=== PATIENT | female | born 1985 | race Caucasian/White ===

== ENCOUNTER → 2016-07-08 | Outpatient (CLI) | payer BC, OTHER ==
[~2016-07-08] MED LIST: ACET-1256 PO; BCPILLS PO; CETI10TA84 PO; IBUP-103 PO; METH0.2T39 PO; METR500T PO; MULT-506 PO; PRENTAB26 PO; VITAMIN D PO
[2016-07-08 13:01] LABS: URINE APPEARANCE CLEAR (CLEAR); URINE BILIRUBIN NEG (NEG); URINE COLOR YELLOW; URINE NITRITE NEG (NEG); URINE PH 7.5 (4.5-7.5); URINE SPECIFIC GRAVITY 1.013 (1.000-1.030); UROBILINOGEN NEG (NEG)
[2016-07-08 13:18] LABS: MANUAL MICROSCOPIC REQUIRED? NO; REVIEW REQ? NO
== END | disposition home or self-care (01) ==
LOC: C.LABSPEC 12:34
PROVIDERS: ATTEND Obstetrics & Gynecology
DX: O34.219 Maternal care for unspecified type scar from previous cesarean delivery (principal); Z3A.00 Weeks of gestation of pregnancy not specified

== ENCOUNTER 2016-07-15 08:38 | Day surgery (SDC) | payer BC, OTHER ==
[~2016-07-15] VITALS: Ht 157.5 cm; Wt 53.0 kg
[~2016-07-15 08:38] MED LIST changes: -ACET-1256 PO; -CETI10TA84 PO; +DOXYCYCLINE HYCLATE 100 MG CAP PO SCH; -IBUP-103 PO; +LACTATED RINGER'S 1000ML 1,000 ML IV SCH; -METH0.2T39 PO; -METR500T PO; -MULT-506 PO; -VITAMIN D PO
[2016-07-15] MEDS ORDERED: ACET-1256 PO (09:03)
[2016-07-15] MEDS ORDERED: CETI10TA84 PO (09:03)
[2016-07-15 09:06] VITALS: BP 105/49; PULSE 77; TEMP 36.6; O2SAT 100; Ht 157.5 cm; Wt 53.0 kg
[2016-07-15 09:28] LABS: BASO % 0.1 %; BASO ABS # 0.01 K/uL (0-0.2); EOS % 1.5 %; HEMATOCRIT 38.3 % (37-47); IG% 0.1 %; LYMPH % 36.9 %; LYMPH ABS # 2.54 K/uL (1.2-3.4); MEAN CELL VOLUME 90.1 fL (80-100); MEAN CORPUSCULAR HEMOGLOBIN 30.6 pg (25-34); MEAN PLATELET VOLUME 9.8 fL (7.4-10.4); MONO % 6.5 %; NEUT % 54.9 %; PLATELET COUNT 225 K/uL (130-400); RED BLOOD COUNT 4.25 M/uL (4.2-5.4); WHITE BLOOD COUNT 6.89 K/uL (4.8-10.8)
[2016-07-15 09:34] LABS: COMPLETE YES; MEAN CORPUSCULAR HGB CONC 33.9 g/dl (32-36)
[2016-07-15] MEDS ORDERED: SODIUM CHLORIDE 0.9% 1000ML 1,000 ML IV SCH (10:09)
--- NOTE | 2016-07-15 10:09 | History & Physical Bridge Note ---
H&P Re-Evaluation Bridge Note: I have examined the patient, reviewed the History & Physical and in the interval since the performance of the History & Physical I have noted the following changes of clinical significance: No changes noted
--- NOTE | 2016-07-15 10:11 | Discharge Instructions ---
Discharge Instructions Date of Service July 15, 2016. Visit Reason for Visit: Missed Discharge Discharge Diagnosis / Problem: Dilation and Evacuation Discharge Goals Goal(s): Specific goals Activity Recommendations Activity Limitations: per Instructions/Follow-up section Anesthesia . Post Anesthesia Instructions: If you have had General Anesthesia or IV Sedation: * Do not drive today. * Resume driving when surgeon permits. * Do not make important decisions or sign legal documents today. * Call surgeon for: 1. Temperature elevations greater than 101 degrees F. 2. Uncontrollable pain. 3. Excessive bleeding. 4. Persistent nausea and vomiting. 5. Medication intolerance (nausea, vomiting or rash). * For nausea and vomiting use only clear liquids such as: tea, soda, bouillon until nausea subsides, then gradually increase diet as tolerated. * If you have any concerns or questions, call your surgeon's office. If physician is unavailable and it is an emergency, call 911 or go to the nearest emergency room. . Instructions / Follow-Up Instructions / Follow-Up ACTIVITY RECOMMENDATIONS: * Avoid tampons, douching, hot tubs, pools, and intercourse until bleeding has stopped. * May shower as usual. * No strenuous activity for 24-48 hours. After 24-48 hours, you may do anything you feel like doing (driving and sports are okay). SPECIAL CARE INSTRUCTIONS: Special Diet: * Mild nausea may occur in the immediate post-operative period. * Take clear liquids such as tea, cola or bouillon until all nausea has subsided; you may then resume your normal diet. Special Care: * Light bleeding and vaginal spotting can last from a few days to 3-4 weeks. Call your doctor if bleeding becomes heavier than the heaviest part of your period. * Check your temperature twice a day for one week. If it goes above 100.4 degrees Fahrenheit (38.0 Celsius), notify your doctor. * Call your doctor's office for an appointment for 6 weeks after your surgery. FOLLOW-UP VISIT: Call your doctor's office for an appointment for 6 weeks after your surgery. Diet Recommendations Recommended Home Diet: resume previous diet Pending Studies Studies pending at discharge: no Medical Emergencies . Who to Call and When: Medical Emergencies: If at any time you feel your situation is an emergency, please call 911 immediately. . Non-Emergent Contact Non-Emergency issues call your: Primary Care Provider . . "Provider Documentation" section prepared by Malaika Law. .
--- NOTE | 2016-07-15 10:14 | History and Physical ---
History & Physical Date July 15, 2016. Chief Complaint Missed History of Present Illness The patient is a 30 year old female with complaints of 8w3d MAB at what should have been 10w3d yesterday. No cramps/VB. Additional History Hepatic Disease: No Endocrine Disorder: No Kidney Disease: No Hypertension: No Heart Disease: No Bleeding Tendencies: No Infectious Diseases: No Allergies Coded Allergies: Levofloxacin (Verified Allergy, Intermediate, RASH, 07/15/16) Fever, Itching Cephalexin (Unverified Allergy, Unknown, UNKNOWN, 07/15/16) UNKNOWN ALLERGY Shellfish Allergy (Unverified Allergy, Unknown, none stated, 07/15/16) Home Medications Scheduled Acetaminophen (Tylenol), 2 TAB PO Q6 Cetirizine (Zyrtec), 10 MG PO DAILY Multivit/Min/Iron/Fol Ac/Pren ( Vitamin), 1 TAB PO DAILY Physical Examination Skin: warm/dry, no rash Eyes: normal inspection, EOMI, sclerae normal ENT: normal ENT inspection, pharynx normal Head: normocephalic, atraumatic Neck: supple, no adenopathy, trachea midline Respiratory/Chest: lungs clear, normal breath sounds, no respiratory distress Cardiovascular: regular rate, rhythm, no edema, no murmur Abdomen / GI: normal bowel sounds, non tender Neurologic/Psych: no motor/sensory deficits, alert, normal reflexes, oriented x 3 Addiitonal Comments: Appropriately sad Diagnosis Missed , first trimester Plan of Treatment Dialtion and evacuation
[2016-07-15] MEDS ORDERED: IBUPROFEN 600 MG TAB PO PRN (10:15)
[2016-07-15] MEDS ORDERED: OXYCODONE/ACETAMINOPHEN 5-325 TAB PO PRN ×2 (10:15)
[2016-07-15] MEDS ORDERED: PROMETHAZINE HCL INJ 25 MG in SODIUM CHLORIDE 0.9% 50ML 50 ML IV PRN (10:15)
[2016-07-15] MEDS ORDERED: ONDANSETRON INJ 2 MG/ML 2 ML VIAL IV PRN ×2 (10:15→11:00)
[2016-07-15] MEDS ORDERED: KETOROLAC TROMETHAMINE 30 MG/ML VIAL IV. PRN (10:15)
[2016-07-15] MEDS ORDERED: FENTANYL CITRATE INJ 50 MCG/1 ML 2 ML VIAL ONE (10:18)
[2016-07-15] MEDS ORDERED: MIDAZOLAM HCL 1 MG/ML 2ML VIAL ONE (10:18)
[2016-07-15] MEDS ORDERED: DOXYCYCLINE HYCLATE 100 MG CAP PO SCH (10:30)
[2016-07-15] MEDS ORDERED: FENTANYL CITRATE INJ 50 MCG/1 ML 2 ML VIAL IV PRN (11:00)
[2016-07-15] MEDS ORDERED: EpHEDrine SULFATE INJ 50 MG/ML AMP IV PRN (11:00)
[2016-07-15] MEDS ORDERED: ATROPINE SULFATE 0.1 MG/ML 5ML SYR IV PRN (11:00)
[2016-07-15] MEDS ORDERED: HYDROmorphone INJ 1 MG/ML SYR IV PRN (11:00)
[2016-07-15] MEDS ORDERED: METHYLERGONOVINE MALEATE 0.2 MG/ML AMP ONE (11:06)
[2016-07-15] MEDS ORDERED: SILVER NITR/POTASSIUM NITRATE APPLICATOR ONE (11:13)
[2016-07-15] MEDS ORDERED: ONDANSETRON INJ 2 MG/ML 2 ML VIAL ONE (11:37)
[2016-07-15] MEDS ORDERED: ROCURONIUM BROMIDE 10 MG/ML 5 ML VIAL ONE (11:37)
[2016-07-15] MEDS ORDERED: DEXAMETHASONE SOD INJ 4 MG/ML VIAL ONE (11:37)
[2016-07-15] MEDS ORDERED: LIDOCAINE HCL 2% 2 ML VIAL (20MG/ML) ONE (11:37)
[2016-07-15] MEDS ORDERED: EpHEDrine SULFATE 50MG/5ML SYR ONE (11:37)
[2016-07-15] MEDS ORDERED: SUCCINYLCHOLINE CHLORIDE 20 MG/ML 10 ML VIAL IV ONE (11:37)
[2016-07-15] MEDS ORDERED: PHENYLEPHRINE 100MCG/ML 5ML SYR ONE (11:37)
--- NOTE | 2016-07-15 11:40 | [facility] Post Operative Brief Note ---
Immediate Operative Summary Operative Date July 15, 2016. Pre-Operative Diagnosis Missed Post-Operative Diagnosis Missed Procedure(s) Performed Dilation and Evacuation Surgeon Dr. Malaika Law [employer]ical [employer] Controller Surgeon(s) None Estimated Blood Loss 600 ml Findings 10cm --> 7cm Specimens A: Product of conception Complication(s) None Disposition Recovery Room / PACU
[2016-07-15] MEDS ORDERED: METH0.2T39 PO (11:41)
--- NOTE | 2016-07-15 12:04 | OPERATIVE REPORT ---
DATE OF OPERATION: 07/15/2016 PREOPERATIVE DIAGNOSIS: Missed at 8 weeks 3 days. POSTOPERATIVE DIAGNOSIS: Same. PROCEDURE: D\T\E. SURGEON: Dr. Law. DIRECTOR OF EDUCATION: None. ESTIMATED BLOOD LOSS: 600 mL. FINDINGS: Uterus sounded to 10 cm at the beginning of procedure, 7 cm at the end. SPECIMENS: Products of conception. COMPLICATIONS: None. DISPOSITION: Stable in the recovery room. DESCRIPTION: Amparo is a 30-year-old 2, para 1 who presented because of a missed identified in the office yesterday at 8 weeks 3 days gestational age. She had elected dilation and evacuation. She was brought to the operating room, placed on the table in the dorsal lithotomy position with candy-cane stirrups, prepped and draped in standard sterile fashion and a hard time-out was taken prior to proceeding. The bladder was emptied of urine via straight catheterization. Lyeva and weighted specula were introduced. The anterior lip of the cervix was grasped with a single-tooth tenaculum. The cervix was sounded to uterine depth of 10 cm. The cervix was serially dilated to allow passage of an 8 mm rigid curet during dilation increasing free flow of bright red blood was seen per cervix. The suction curette was introduced and suction was applied. Through 3 passes material consistent with products of conception was retrieved in significant quantity. Each time the suction curette was removed free flowing blood was noted per cervical os. After these 3 passes a brief sharp curettage was carried out. Good cry was felt on all bob. As the bleeding was continuing all instruments were then removed and bimanual massage was completed while anesthesia administered a dose of IM Methergine. After several minutes of massage following this Methergine dose the uterine bleeding was seen to flow considerably. A 8 mm curette was introduced one final time to the fundus and the suction pass was completed retrieving again significant blood but no further products of conception. After the suction curette was removed free flowing blood was once again seen. All instruments were again removed and bimanual massage was again completed. This time the uterus was felt to firm considerably and blood flow essentially ceased. A sponge stick was used to ensure that there was no free flowing blood from the left os, indeed there was no bleeding at all. At this point, the single tooth tenaculum was removed and unfortunately bleeding was then seen from both the single tooth tenaculum sites. An Allis clamp was applied to each site and several minutes of observation were undertaken. At this point the Allis was removed and there was still bleeding from each of the tenaculum sites. These were briefly addressed with silver nitrate until hemostasis was achieved. At this point, there was no obvious uterine bleeding. There was no obvious bleeding from the tenaculum sites. EBL was considered to be 600 mL based on the volume identified in the suction canisters. The patient's vital signs were stable and within normal limits per anesthesia. At this time, it was not felt that there was additional concern regarding complications of blood loss. There was not a need to type and cross or anticipate transfusion at this point; however, I do feel that it would be prudent to give the patient oral Methergine to take for the next 24 hours to help ensure that she does not resume bleeding. This is both because of the significant amount of blood loss intraoperatively and also the patient's history of a prior hemorrhage. With the patient in stable condition I did leave the operating room to speak with her and let him know the surgery was completed and that again there had been significant bleeding during surgery. He says he is not aware of her having a bleeding disorder and does not bleed and unusually long amount of time from cuts nor does she have nosebleeds or gum bleeding at home, although she does recall the history of the hemorrhage after the first delivery. I attest to the content of the Intraoperative Record and any orders documented therein. Any exceptio ns are noted below.
--- NOTE | 2016-07-15 12:12 | Anesthesiology Progress Note ---
Anesthesia Post Op Note Date & Time July 15, 2016 at 12:12 Vital Signs Pain Intensity: 4 Vital Signs Past 12 Hours Date Time Temp Pulse Resp B/P Pulse Ox O2 Delivery O2 Flow Rate FiO2 07/15/16 12:00 71 18 105/53 100 Room Air 07/15/16 11:50 71 20 105/53 100 Mask 10 07/15/16 11:40 80 21 106/52 100 Mask 10 07/15/16 11:31 37.2 86 20 108/56 100 Mask 10 07/15/16 09:06 36.6 77 16 105/49 100 Room Air Notes Mental Status: alert / awake / arousable, participated in evaluation Pt Amnestic to Procedure: Yes Nausea / Vomiting: adequately controlled Pain: adequately controlled Airway Patency, RR, SpO2: stable & adequate BP & HR: stable & adequate Hydration State: stable & adequate Anesthetic Complications: no major complications apparent
[2016-07-15 12:15] VITALS: BP 102/56; PULSE 69; TEMP 36.7; O2SAT 100
[2016-07-15 12:45] VITALS: BP 102/71; PULSE 76; TEMP 36.6; O2SAT 100
[2016-07-15 13:19] VITALS: BP 108/56; PULSE 82; TEMP 36.2; O2SAT 98
[2016-12-16] MEDS ORDERED: VITAMIN D PO (11:32)
[2016-12-16] MEDS ORDERED: MULT-506 PO (11:32)
[2016-12-19] MEDS ORDERED: IBUP-103 PO (05:57)
[2016-12-19] MEDS ORDERED: METR500T PO (08:34)
== END 2016-07-15 13:30 | disposition home or self-care (01) ==
LOC: C.ACU 08:38
PROVIDERS: ATTEND Obstetrics & Gynecology
DX: O02.1 Missed abortion (principal); Z91.013 Allergy to seafood; Z88.1 Allergy status to other antibiotic agents; Z68.21 Body mass index [BMI] 21.0-21.9, adult

== ENCOUNTER → 2016-08-26 | Outpatient (CLI) | payer BC, OTHER ==
[~2016-08-26] MED LIST changes: +ACET-1256 PO; -BCPILLS PO; +CETI10TA84 PO; -DOXYCYCLINE HYCLATE 100 MG CAP PO SCH; -LACTATED RINGER'S 1000ML 1,000 ML IV SCH; +METH0.2T39 PO
== END | disposition home or self-care (01) ==
LOC: C.LAB1850 15:56
PROVIDERS: ATTEND Obstetrics & Gynecology
DX: O02.1 Missed abortion (principal)

== ENCOUNTER → 2016-12-13 | Outpatient (CLI) | payer BC, OTHER ==
[~2016-12-13] MED LIST changes: +MULT-506 PO; +VITAMIN D PO
[2016-12-13 14:18] LABS: URINE APPEARANCE CLEAR (CLEAR); URINE BILIRUBIN NEG (NEG); URINE COLOR YELLOW; URINE NITRITE NEG (NEG); URINE PH 7.5 (4.5-7.5); URINE SPECIFIC GRAVITY 1.014 (1.000-1.030); UROBILINOGEN NEG (NEG)
[2016-12-13 14:20] LABS: MANUAL MICROSCOPIC REQUIRED? NO; REVIEW REQ? NO
== END | disposition home or self-care (01) ==
LOC: C.LABSPEC 13:39
PROVIDERS: ATTEND Obstetrics & Gynecology
DX: Z34.81 Encounter for supervision of other normal pregnancy, first trimester (principal)

== ENCOUNTER → 2016-12-15 | Outpatient (CLI) | payer BC, OTHER ==
[~2016-12-15] MED LIST changes: +IBUP-103 PO; +METR500T PO
[2016-12-15 13:13] LABS: BASO % 0.1 %; BASO ABS # 0.01 K/uL (0-0.2); COMPLETE YES; EOS % 0.5 %; HEMATOCRIT 35.9 % (37-47); IG% 0.3 %; LYMPH % 18.5 %; LYMPH ABS # 1.87 K/uL (1.2-3.4); MEAN CELL VOLUME 87.8 fL (80-100); MEAN CORPUSCULAR HEMOGLOBIN 30.1 pg (25-34); MEAN CORPUSCULAR HGB CONC 34.3 g/dl (32-36); MONO % 5.6 %; PLATELET COUNT 239 K/uL (130-400); RED BLOOD COUNT 4.09 M/uL (4.2-5.4); WHITE BLOOD COUNT 10.11 K/uL (4.8-10.8)
[2016-12-20 03:18] LABS: CHLAMYDIA TRACH RNA*** NOT DETECTED (NOT DETECTED); GC (NEIS GONORRHOEAE)RNA** NOT DETECTED (NOT DETECTED)
== END | disposition home or self-care (01) ==
LOC: C.LAB1850 12:21
PROVIDERS: ATTEND Obstetrics & Gynecology
DX: Z01.812 Encounter for preprocedural laboratory examination (principal)

== ENCOUNTER → 2016-12-19 | Day surgery (SDC) | payer BC, OTHER ==
[2016-12-16 11:34] VITALS: BMI 22.0
[~2016-12-19] VITALS: Ht 154.9 cm; Wt 53.6 kg
[~2016-12-19] MED LIST changes: +ATROPINE SULFATE 0.1 MG/ML 5ML SYR IV PRN; +DEXAMETHASONE SOD INJ 4 MG/ML VIAL ONE; +DOXYCYCLINE HYCLATE 100 MG CAP PO ONE; +DOXYCYCLINE HYCLATE 100 MG CAP PO SCH; +EpHEDrine SULFATE 50MG/5ML SYR ONE; +EpHEDrine SULFATE INJ 50 MG/ML AMP IV PRN; +FENTANYL CITRATE INJ 50 MCG/1 ML 2 ML VIAL IV PRN; +FENTANYL CITRATE INJ 50 MCG/1 ML 2 ML VIAL ONE; +KETOROLAC TROMETHAMINE 30 MG/ML VIAL ONE; +LACTATED RINGER'S 1000ML 1,000 ML IV SCH; +LIDOCAINE HCL 2% 2 ML VIAL (20MG/ML) ONE; -METH0.2T39 PO; +METHYLERGONOVINE MALEATE 0.2 MG/ML AMP ONE; +MIDAZOLAM HCL 1 MG/ML 2ML VIAL ONE; +ONDANSETRON INJ 2 MG/ML 2 ML VIAL IV PRN; +OXYCODONE/ACETAMINOPHEN 5-325 TAB PO PRN; +OXYTOCIN INJ 10 UNITS/ML VIAL ONE; -PRENTAB26 PO; +PROMETHAZINE HCL INJ 25 MG in SODIUM CHLORIDE 0.9% 50ML 50 ML IV PRN; +PROPOFOL IV EMULSION 10 MG/ML 20 ML VIAL IV ONE; +SODIUM CHLORIDE 0.9% 1000ML 1,000 ML IV SCH
[2016-12-19 05:58] VITALS: BP 105/60; PULSE 83; TEMP 36.9; O2SAT 100; Ht 154.9 cm; Wt 53.6 kg
--- NOTE | 2016-12-19 07:30 | History & Physical Bridge Note ---
H&P Re-Evaluation Bridge Note: I have examined the patient, reviewed the History & Physical and in the interval since the performance of the History & Physical I have noted the following changes of clinical significance: Reviewed with patient that we will perform suction D&E, will perform chromosome testing of products of conception.
--- NOTE | 2016-12-19 08:36 | Discharge Instructions ---
Discharge Instructions Date of Service Dec 19, 2016. Visit Reason for Visit: Missed Discharge Discharge Diagnosis / Problem: s/p suction D&E Discharge Goals Goal(s): Diagnostic testing, Therapeutic intervention Activity Recommendations Activity Limitations: per Instructions/Follow-up section Anesthesia . Post Anesthesia Instructions: If you have had General Anesthesia or IV Sedation: * Do not drive today. * Resume driving when surgeon permits. * Do not make important decisions or sign legal documents today. * Call surgeon for: 1. Temperature elevations greater than 101 degrees F. 2. Uncontrollable pain. 3. Excessive bleeding. 4. Persistent nausea and vomiting. 5. Medication intolerance (nausea, vomiting or rash). * For nausea and vomiting use only clear liquids such as: tea, soda, bouillon until nausea subsides, then gradually increase diet as tolerated. * If you have any concerns or questions, call your surgeon's office. If physician is unavailable and it is an emergency, call 911 or go to the nearest emergency room. . Instructions / Follow-Up Instructions / Follow-Up ACTIVITY RECOMMENDATIONS: * Avoid tampons, douching, hot tubs, pools, and intercourse until bleeding has stopped. * May shower as usual. * No strenuous activity for 24-48 hours. After 24-48 hours, you may do anything you feel like doing (driving and sports are okay). SPECIAL CARE INSTRUCTIONS: Special Diet: * Mild nausea may occur in the immediate post-operative period. * Take clear liquids such as tea, cola or bouillon until all nausea has subsided; you may then resume your normal diet. Special Care: * Light bleeding and vaginal spotting can last from a few days to 3-4 weeks. Call your doctor if bleeding becomes heavier than the heaviest part of your period. * Check your temperature twice a day for one week. If it goes above 100.4 degrees Fahrenheit (38.0 Celsius), notify your doctor. * Call your doctor's office for an appointment for 6 weeks after your surgery. FOLLOW-UP VISIT: Call your doctor's office for an appointment for 6 weeks after your surgery. Diet Recommendations Recommended Home Diet: resume previous diet Procedures Procedures Performed: Dilation and Evacuation Products of Conception with Genetic Testing, Ultrasound Guidance Pending Studies Studies pending at discharge: yes List of pending studies: Anora genetic testing Medical Emergencies . Who to Call and When: Medical Emergencies: If at any time you feel your situation is an emergency, please call 911 immediately. . Non-Emergent Contact Non-Emergency issues call your: Primary Care Provider, [employer] . . "Provider Documentation" section prepared by Neeru Mejía. .
--- NOTE | 2016-12-19 08:40 | [facility] Post Operative Brief Note ---
Immediate Operative Summary Operative Date Dec 19, 2016. Pre-Operative Diagnosis Missed Post-Operative Diagnosis Missed Procedure(s) Performed Dilation and Evacuation Products of Conception with Genetic Testing, Ultrasound Guidance Surgeon Dr. Mejía Head Miller Surgeon(s) none Estimated Blood Loss 600 ml Findings Ultrasound-guidance, no FHR or movement visible. Large amount of products of conception. Uterine cavity empty at conclusion of case, as confirmed by ultrasound. Specimens A. Products of Conception Genetic Testing Kit sent to lab Drains bladder emptied prior to procedure Anesthesia general Complication(s) None Disposition Recovery Room / PACU
--- NOTE | 2016-12-19 09:02 | OPERATIVE REPORT ---
DATE OF OPERATION: 12/19/2016 PREOPERATIVE DIAGNOSIS: Missed . POSTOPERATIVE DIAGNOSIS: Same. PROCEDURE: Dilation and evacuation of products of conception with genetic testing and ultrasound guidance. SURGEON: Neeru Mejía DO CHIEF FINANCIAL OFFICER: Dr. Palmer ESTIMATED BLOOD LOSS: 600 mL. FINDINGS: Ultrasound guidance performed with no heart rate or movement visible. Large amount of products of conception obtained. Uterine cavity was visibly empty at the conclusion of the case as confirmed by ultrasound. SPECIMENS: Products of conception and genetic testing kit sent to the lab. DRAINS: Bladder emptied prior to procedure. ANESTHESIA: General. COMPLICATIONS: None. DISPOSITION: Stable and good to recovery room. INDICATIONS FOR PROCEDURE: The patient is a 31-year-old G3, P1-0-1-1 with intrauterine at 9 weeks 0 days, who had been seen in the office for a new OB visit. On ultrasound, it was found that she had a missed , measuring 9 weeks 1 day. She had previously had a recent D&E after her last miscarriage and elected to proceed with surgical treatment again. Blood type is O positive. Since it is a second miscarriage in 6 months, she elected to have genetic testing performed. DESCRIPTION OF PROCEDURE: The patient was seen in the preoperative holding area, where risks, benefits, and alternatives to surgery were reviewed. She elected to proceed with the case. She was taken to the operating room and p.o. doxycycline was given as antibiotic prophylaxis. General anesthesia was introduced. She was prepared and draped in the usual sterile fashion with feet in candy cane stirrups in the dorsal lithotomy position. The bladder was drained for 1 mL of urine as the patient had empty bladder just prior to going back to surgery. The weighted speculum was placed in the vagina and cervix was visualized and the anterior lip was grasped with a single tooth tenaculum. The ultrasound was performed and the above noted findings were seen. Cervix was sequentially dilated to admit a 10-mm curved plastic curette. This was inserted and then using ultrasound guidance, multiple passes were used to evacuate the contents of the uterus. A gentle curettage with a sharp curette was performed to obtain any additional tissue. An additional pass of the curved curet was performed and excellent hemostasis was observed following complete evacuation. Due to bleeding during the case, IM Pitocin and IM Methergine were both given by anesthesia at my request to control bleeding. However, upon complete evacuation as confirmed by ultrasound, all bleeding stopped. All the instruments were removed from the vagina. The patient was taken to the recovery area in stable and good condition and she tolerated the procedure well. The specimen will be sent to [facility] for chromosome testing. I attest to the content of the Intraoperative Record and any orders documented therein. Any exceptions are noted below. AROLDO
--- NOTE | 2016-12-19 09:05 | Anesthesiology Progress Note ---
Anesthesia Post Op Note Date & Time Dec 19, 2016 at 09:04 Vital Signs Pain Intensity: 2 Vital Signs Past 12 Hours Date Time Temp Pulse Resp B/P (MAP) Pulse Ox O2 Delivery O2 Flow Rate FiO2 12/19/16 09:00 36.7 78 23 107/47 100 Room Air 12/19/16 08:50 76 24 107/62 100 Room Air 12/19/16 08:40 83 18 104/56 100 Oxymask 10 12/19/16 08:30 72 24 107/57 100 Oxymask 10 12/19/16 08:24 36.8 85 16 110/52 100 Oxymask 10 12/19/16 05:58 36.9 83 16 105/60 (75) 100 Room Air Notes Mental Status: alert / awake / arousable, participated in evaluation Pt Amnestic to Procedure: Yes Nausea / Vomiting: adequately controlled Pain: adequately controlled Airway Patency, RR, SpO2: stable & adequate BP & HR: stable & adequate Hydration State: stable & adequate Anesthetic Complications: no major complications apparent
[2016-12-19 09:10] VITALS: BP 108/56; PULSE 79; TEMP 36.7; O2SAT 100
[2016-12-19 09:40] VITALS: BP 104/58; PULSE 76; TEMP 36.7; O2SAT 100
[2016-12-19 10:15] VITALS: BP 105/63; PULSE 82; TEMP 36.8; O2SAT 97
== END | disposition home or self-care (01) ==
LOC: C.ACU 05:30
PROVIDERS: ATTEND Obstetrics & Gynecology
DX: O02.1 Missed abortion (principal); Z22.330 Carrier of Group B streptococcus; Z98.890 Other specified postprocedural states; Z98.818 Other dental procedure status; Z68.22 Body mass index [BMI] 22.0-22.9, adult; Z80.41 Family history of malignant neoplasm of ovary; Z83.3 Family history of diabetes mellitus

== ENCOUNTER 2017-02-05 21:16 | Emergency (ER) | payer BC, OTHER ==
[~2017-02-05] VITALS: Ht 154.9 cm; Wt 53.6 kg
[~2017-02-05 21:16] MED LIST changes: -ATROPINE SULFATE 0.1 MG/ML 5ML SYR IV PRN; -DEXAMETHASONE SOD INJ 4 MG/ML VIAL ONE; -DOXYCYCLINE HYCLATE 100 MG CAP PO ONE; -DOXYCYCLINE HYCLATE 100 MG CAP PO SCH; -EpHEDrine SULFATE 50MG/5ML SYR ONE; -EpHEDrine SULFATE INJ 50 MG/ML AMP IV PRN; -FENTANYL CITRATE INJ 50 MCG/1 ML 2 ML VIAL IV PRN; -FENTANYL CITRATE INJ 50 MCG/1 ML 2 ML VIAL ONE; -KETOROLAC TROMETHAMINE 30 MG/ML VIAL ONE; -LACTATED RINGER'S 1000ML 1,000 ML IV SCH; -LIDOCAINE HCL 2% 2 ML VIAL (20MG/ML) ONE; -METHYLERGONOVINE MALEATE 0.2 MG/ML AMP ONE; -METR500T PO; -MIDAZOLAM HCL 1 MG/ML 2ML VIAL ONE; -ONDANSETRON INJ 2 MG/ML 2 ML VIAL IV PRN; -OXYCODONE/ACETAMINOPHEN 5-325 TAB PO PRN; -OXYTOCIN INJ 10 UNITS/ML VIAL ONE; -PROMETHAZINE HCL INJ 25 MG in SODIUM CHLORIDE 0.9% 50ML 50 ML IV PRN; -PROPOFOL IV EMULSION 10 MG/ML 20 ML VIAL IV ONE; -SODIUM CHLORIDE 0.9% 1000ML 1,000 ML IV SCH
[2017-02-05 21:18] VITALS: TEMP 36.7; Ht 154.9 cm; Wt 53.6 kg
[2017-02-05] MEDS ORDERED: NORE1TAB50 PO (21:48)
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
[2017-02-05] MEDS ORDERED: PRED20TA2 PO (22:32)
[2017-02-05 22:40] VITALS: BP 103/61; PULSE 63; O2SAT 100
== END 2017-02-05 22:40 | disposition home or self-care (01) ==
LOC: C.EDB 21:17 → C.EDD 22:40
DX: M54.12 Radiculopathy, cervical region (principal); V40.6XXA Car passenger injured in collision with pedestrian or animal in traffic accident, initial encounter

== ENCOUNTER → 2017-07-04 | Outpatient (CLI) | payer OTHER ==
[~2017-07-04] MED LIST changes: -ACET-1256 PO; +NORE1TAB50 PO
--- NOTE | 2017-07-04 09:11 | DIAGNOSTIC IMAGING REPORT ---
KUB CLINICAL HISTORY: 31 years-old Female presenting with R10.9 ABDOMINAL PAIN. TECHNIQUE: Single supine view of the abdomen was obtained. COMPARISON: None. FINDINGS: Moderate stool burden throughout the colon. Paucity of small bowel gas, nonspecific. No gross evidence of bowel obstruction or pneumoperitoneum allowing for supine technique. Allowing for bowel gas and stool, no calcifications to suggest nephrolithiasis. Osseous structures normal. Lung bases clear. IMPRESSION: 1. Moderate stool burden consistent with constipation. 2. Paucity of small bowel gas, nonspecific. No gross evidence of free air or obstruction. Electronically signed by: Yusuf Vieira M.D. 07/04/2017 9:10 AM Dictated Date/Time: 07/04/2017 9:09 AM
== END | disposition home or self-care (01) ==
LOC: C.RADBC 08:39
PROVIDERS: ATTEND Nurse Practitioner Family
DX: R19.5 Other fecal abnormalities (principal); R10.9 Unspecified abdominal pain

== ENCOUNTER 2018-11-05 05:35 | Inpatient (IN) ==
--- NOTE | 2018-10-31 14:34 | History and Physical Report ---
DATE OF ADMISSION: 11/05/2018 ADMITTING DIAGNOSES: 1. Term . 2. Previous section. ADMISSION HISTORY: The patient is a 33-year-old 2, para 1 with an EDC of 09 November who was admitted at 39+ weeks gestational age for elective repeat section. The patient had been counseled on the risks and benefits of an attempted vaginal after versus a repeat section and has opted for repeat section. The patient's first delivery was a section at term for bleeding. Postoperatively, the patient had bleeding requiring a Bakri balloon as well as transfusion. This has been unremarkable. Laboratory values for the show a blood type of O positive, antibody negative, rubella immune, hepatitis B negative. The patient declined all genetic screening. She had normal 1-hour Glucola x2. She had GBS bacteria during the . PAST MEDICAL HISTORY: OBSTETRICAL: As above. WARP TRUCKER: None. MEDICAL: IBS, depression, migraine headaches. SURGICAL: Vanderbilt teeth extraction, colonoscopy. ALLERGIES: KEFLEX AND AZITHROMYCIN. SOCIAL HISTORY: No smoking. FAMILY HISTORY: Noncontributory. REVIEW OF SYSTEMS: As per HPI. ADMISSION PHYSICAL EXAMINATION: GENERAL: Shows a gravid female in no acute distress. VITAL SIGNS: Blood pressure 110/80 and a weight of 148 pounds. HEENT EXAMINATION: Unremarkable. NECK: Supple. LUNGS: Clear. HEART: With a regular rhythm and rate. ABDOMEN: Gravid, vertex, positive heart tones, estimated weight of 7-1/2 pounds. PELVIC: Deferred. EXTREMITIES: Shows no deep calf tenderness. NEUROLOGIC: Grossly intact. IMPRESSION: A 33-year-old 4, para 1 at 39+ weeks gestational age for elective repeat section. PLAN: The risks, benefits, and alternatives to the surgery have been discussed. While the benefits will be delivery of the , the risks are bleeding, infection, inadvertent injury to bowel or bladder, readmission or reoperation. The patient understands this, permit has been signed, and she wishes to proceed.
--- NOTE | 2018-10-31 14:50 | Anesthesiology Consultation ---
Date of Service October 31, 2018 Assessment & Plan (1) Encounter for pre-operative examination: - No labs at PAT: per OB, no labs to be drawn at PAT visit* Chart Review Chart Review: Acceptable Risk for Surgery (pending labs AM DOS) and Patient seen in Pre Admission Testing Teaching & Discussion Pre-Anesthesia Teaching/Discussion Notes: Instructed NPO after midnight before surgery,except medications with 15 cc of water. Medication instructions provided according to the PAT guidelines. History Surgery Operation Date: 11/05/18 07:30 Proposed Procedures p Section in LD - Sterling Dobbs Jr, MD, FACOG Height/Weight Height: 5 ft 1 in Weight: 67.2 kg Allergies Allergy/AdvReac Type Severity Reaction Status Date / Time levofloxacin Allergy Intermediate RASH Verified 10/31/18 13:52 azithromycin Allergy Unknown FEVER RASH Verified 10/31/18 13:52 cephalexin Allergy Unknown UNKNOWN- Verified 10/31/18 13:52 A CHILD latex Allergy Unknown RASH Verified 10/31/18 13:52 shellfish derived Allergy Unknown FACE Verified 10/31/18 13:52 SWELLING RASH Medications Home Medications Medication Instructions Recorded Confirmed Last Taken acetaminophen 325 mg capsule 325 mg PO Q4H PRN 09/24/18 10/31/18 Unknown pyridoxine (vitamin B6) 1 tab PO QPM 09/24/18 10/31/18 Unknown docosahexanoic acid PO 10/03/18 10/31/18 Unknown PNV cmb#[id number]-ferrous fumarate-FA 1 tab PO QPM 10/23/18 10/31/18 Unknown [] calcium carbonate [Tums] 200 mg PO UD PRN 10/23/18 10/31/18 Unknown docusate sodium [Colace] 100 mg PO QPM 10/23/18 10/31/18 Unknown Past Medical History Medical History History of IBS History of anemia s/p previous blood transfusion in 2013 s/p c/s (negative antibodies per 9 T&S) History of varicella Hx of migraines Exercise / Class Metabolic Activity II 4-5 Yardwork/Stairs/Walk up hill Past Family History Family History Unknown Ovarian cancer cousin Diabetes Multiple sclerosis cousin Grandmother (Paternal) Diabetes Father Malignant neoplasm of brain Mother Thyroid disorder Brother Family history of reaction to anesthesia SLOW TO WAKE UP Past Surgical History Surgical History History of colonoscopy History of esophagogastroduodenoscopy (EGD) S/P section 2013 (2/2 vaginal bleeding/placental hemorrhage)- SAB x1 at L3-L4 at [facility] (good pain control per patient) S/P dilation and curettage X 2 S/P wisdom tooth extraction Past Anesthesia History No Hx of Anesthesia Complications (except single episode PONV) Brother: "Slow to wake up." No known hx of reintubation History of PONV History of PONV and Hx of Motion Sickness Social History Smoking Status: Never smoker Do You Dip or Chew Tobacco: No Hx Alcohol Use: Yes Alcohol type: wine alcohol intake frequency: holidays/special occasions only (but no ETOH during *) Hx Substance Use: No Review of Systems Reflux and LBP related. Patient denies chest pain, shortness of breath, dyspnea on exertion, cough, wheezing, palpitations. Physical Exam Vital Signs VITALS BP 98/63 (per patient, typically on the lower-normal BP range) P 73 TEMP 98.1 SP02 98%RA RESP 18 PHYSICAL Full neck and c-spine range of motion. Full TMJ range of motion. TMD 2.5 finger breaths Mallampati Score 2 Dentition: intact, crowns on molars Lungs: clear throughout to auscultation Cardiac: regular rate and rhythm, no murmurs noted Spine: normal Extremities: no edema Testing Laboratory Results 04/06/18 T&S O+Ab-
[2018-11-05] MEDS ORDERED: CLINDAMYCIN 900 MG in DEXTROSE 5% 50 ML IV SCH (06:00)
[2018-11-05] MEDS ORDERED: LACTATED RINGER'S 1,000 ML IV SCH ×2 (06:00→10:47)
[2018-11-05] MEDS ORDERED: CITRIC ACID/SODIUM CITRATE 15 ML UDC PO SCH (06:00)
[2018-11-05 06:16] LABS: Basophils # (auto) 0.01 K/uL (0-0.2); Basophils % (auto) 0.2 %; Eosinophils % (auto) 1.6 %; Hematocrit (blood only) 33.9 % (37-47); Hemoglobin 11.8 g/dL (12.0-16.0); Immature Granulocytes # (auto) 0.03 K/uL (0.00-0.02); Immature Granulocytes % (auto) 0.5 %; Lymphocytes # (auto) 1.48 K/uL (1.2-3.4); Lymphocytes % (auto) 23.1 %; Mean Corpuscular Hemoglobin 32.2 pg (25-34); Mean Corpuscular Volume 92.4 fL (80-100); Mean Platelet Volume 10.9 fL (7.4-10.4); Monocytes # (auto) 0.67 K/uL (0.11-0.59); Monocytes % (auto) 10.4 %; Neutrophils # (auto) 4.13 K/uL (1.4-6.5); Neutrophils % (auto) 64.2 %; Platelet Count 149 K/uL (130-400); RDW Coefficient of Variation 13.3 % (11.5-14.5); RDW Standard Deviation 44.7 fL (36.4-46.3); Red Blood Count 3.67 M/uL (4.2-5.4); White Blood Count 6.42 K/uL (4.8-10.8)
[2018-11-05 06:26] LABS: Mean Corpuscular Hgb Conc 34.8 g/dL (32-36)
--- NOTE | 2018-11-05 07:04 | History & Physical Bridge Note ---
Date of Service November 05, 2018 History & Physical Bridge Note I have examined the patient, reviewed the History & Physical and in the interval since the performance of the History & Physical I have noted the following changes of clinical significance: no changes noted
[2018-11-05] MEDS ORDERED: MoRPHine SULFATE PF 1 MG/ML 10 ML AMP/VIAL ONE (07:32)
[2018-11-05] MEDS ORDERED: fentaNYL citrate 100 MCG/2 ML VIAL ONE (07:32)
[2018-11-05] MEDS ORDERED: PHENYLEPHRINE 100MCG/ML 5ML SYR ONE (07:48)
[2018-11-05] MEDS ORDERED: OXYTOCIN 10 UNITS/ML VIAL ONE ×2 (07:48→08:16)
[2018-11-05] MEDS ORDERED: CARBOPROST TROMETHAMINE 250 MCG/ML AMPUL ONE (07:51)
[2018-11-05] MEDS ORDERED: DiphenhydrAMINE HCL 50 MG/ML VIAL IV PRN (07:57)
[2018-11-05] MEDS ORDERED: NALBUPHINE HCL INJ 10 MG/ML AMP IV PRN (07:57)
[2018-11-05] MEDS ORDERED: ePHEDrine sulfate 50 MG/ML AMP IV PRN (07:57)
[2018-11-05] MEDS ORDERED: NALOXONE HCL 1 MG in SODIUM CHLORIDE 0.9% 1000ML 1,000 ML IV PRN (07:57)
[2018-11-05] MEDS ORDERED: ONDANSETRON INJ 2 MG/ML 2 ML VIAL IV PRN (07:57)
[2018-11-05] MEDS ORDERED: NALOXONE HCL 0.4 MG/1 ML VIAL/CARP IV PRN (07:57)
[2018-11-05] MEDS ORDERED: LACTATED RINGER'S 500 ML IV PRN (07:57)
[2018-11-05] MEDS ORDERED: HYDROmorphone INJ 0.5 MG/0.5 ML SYR IV PRN (07:57)
[2018-11-05] MEDS ORDERED: MoRPHine SULFATE PF 1 MG/ML 10 ML AMP/VIAL INT SPINAL ONE (07:57)
[2018-11-05] MEDS ORDERED: NALOXONE HCL 0.08 MG in SYRINGE 1.8 ML IV PRN (07:57)
[2018-11-05] MEDS ORDERED: NO NARCOTICS OR SEDATIVES SCH (08:00)
[2018-11-05] MEDS ORDERED: SODIUM CHLORIDE 0.9% 1000ML 1,000 ML IV SCH (08:00)
[2018-11-05] MEDS ORDERED: DEXAMETHASONE SOD INJ 4 MG/ML VIAL ONE (08:16)
[2018-11-05] MEDS ORDERED: ONDANSETRON INJ 2 MG/ML 2 ML VIAL ONE (08:16)
--- NOTE | 2018-11-05 08:27 | Post Operative Brief Note ---
PG Immediate Post Op with CF Date of Surgery November 05, 2018 Pre & Post Diagnosis Operation Date: 11/05/18 07:30 Pre-Op Diagnosis: TERM PREVIOUS SECTION Post-Op Diagnosis: SAME PREOP Procedure Operation Date: 11/05/18 07:30 Actual Procedures p Section in LD; LIVE FEMALE INFANT AT 0804(Bilateral) - Sterling Dobbs Jr, MD, FACOG Surgeon Sterling Dobbs Jr, MD, FACOG Technical Expert Gilbert/Alexei Estimated Blood Loss 800 Findings See Below (viable female , Apgars 8/9; weight 7 lbs 10 ozs, gasses pending, normal appearing tubes and ovries bilaterally) Specimens Specimen Description: PLACENTA (EXAM) CORD BLOOD ARTERIAL AND VENOUS CORD GASES Drains Neville Catheter
[2018-11-05] MEDS ORDERED: PROMETHAZINE HCL 12.5 MG in SODIUM CHLORIDE 0.9% 50 ML IV PRN (08:56)
--- NOTE | 2018-11-05 08:58 | Anesthesiology Progress Note ---
Date of Service November 05, 2018 Anesthesia Post Procedure Vital Signs Vital Signs: Temp Pulse Resp BP Pulse Ox 11/05/18 08:55 75 113/57 L 11/05/18 08:54 62 98 11/05/18 08:49 68 99 11/05/18 08:45 65 111/59 L 11/05/18 08:44 65 99 11/05/18 08:39 69 99 11/05/18 08:35 39 L 113/57 L 11/05/18 08:34 66 99 11/05/18 07:00 77 139/84 11/05/18 05:49 36.8 C 73 16 117/71 Transfer of Care Handoff Completed per policy Notes Mental Status: alert / awake / arousable Patient Amnestic to Procedure: Yes Nausea / Vomiting: adequately controlled Pain: adequately controlled Airway Patency, RR, SpO2: stable & adequate BP & HR: stable & adequate Hydration State: stable & adequate Neuraxial Anesthesia: was administered and sensory block is resolving Anesthetic Complications: no major complications apparent and Pt Satisfied with anesthetic care
[2018-11-05 09:44] LABS: CO2 Cord Arterial Blood 54 mmHg (39.1-73.5); HCO3 Cord Arterial Blood 25 mmol/L (19.7-28.5); pH Cord Arterial Blood 7.27 (7.1-7.38)
[2018-11-05 09:45] LABS: Oxygen Sat Cord Arterial Blood < 60.0 % (<60)
[2018-11-05 09:49] LABS: Base Excess Cord Venous Blood -1.9 mEq/L (-7.7-1.9); Cord Venous Blood HCO3 24 mmol/L (18.4-26.8); Cord Venous Blood PCO2 45 mmHg (30.4-57.2); Cord Venous Blood PO2 30 mmHg (14.1-43.3); Cord Venous Blood pH 7.35 (7.20-7.44)
[2018-11-05] MEDS ORDERED: OXYTOCIN 20 UNITS in LACTATED RINGER'S 1,000 ML IV SCH (10:00)
[2018-11-05] MEDS ORDERED: DIPHTHERIA/TETANUS/PERTUSSIS 0.5 ML SYR/VIAL IM ONE (10:47)
[2018-11-05] MEDS ORDERED: BENZOCAINE 20% AER SPR 82.5 GM CAN EXT PRN (10:47)
[2018-11-05] MEDS ORDERED: HYDROCORTISONE ACETATE 25 MG SUPP PR PRN (10:47)
[2018-11-05] MEDS ORDERED: SUPERCREAM 0.870% 15 GM JAR EXT PRN (10:47)
--- NOTE | 2018-11-05 10:50 | Operative Report ---
DATE OF OPERATION: 11/05/2018 PREOPERATIVE DIAGNOSES: 1. Term . 2. Previous section. POSTOPERATIVE DIAGNOSES: 1. Term . 2. Previous section. PROCEDURE PERFORMED: Repeat low cervical transverse section. SURGEON: Sterling Dobbs MD PICKING CREW SUPERVISOR: Dr. Claritza Hunt and Dr. Reinaldo Linda. ANESTHESIA: Spinal. FINDINGS: A viable female with Apgars of 8 and 9, weight of 7 pounds 10 ounces. Arterial and venous cord gases pending. Normal appearing tubes and ovaries bilaterally. PROCEDURE IN DETAIL: The patient was taken to the operating room after spinal anesthesia, was placed in supine position, draped and prepped in the usual fashion. Pfannenstiel type incision was made. Underlying subcutaneous tissue was dissected down to the ventral abdominal fascia, which was nicked and opened in a horizontal manner. Preperitoneal fascia was dissected away until the peritoneal cavity was entered and opened in a vertical manner. Bladder blade was placed. Peritoneum overlying the uterus was elevated, opened in a semi-lunar fashion, the inferior margin of which was taken down creating the bladder flap. The uterus was entered sharply and extended in a semilunar fashion manually. Viable female was delivered. Cord was clamped and cut and the baby was passed off to pediatrics who was in attendance for the delivery. Cord gases and cord blood samples were obtained. The placenta was delivered spontaneously and the uterus was exteriorized. The uterine cavity was wiped clean of any residual blood tissue and/or clot. The uterine incision was then closed with 2 layers of 4-0 Vicryl, the first a running locking stitch, the second an imbricating stitch. Hemostasis was achieved and the uterus was returned to the pelvic cavity. The paracolic gutters were cleared bilaterally of any blood tissue and/or clot. Uterine incision was inspected for hemostasis, which was present. The rectus muscle was then plicated in the midline with a running 2-0 Vicryl suture. The fascia was closed laterally with a running 0 Vicryl stitch. The subcutaneous tissue was irrigated with warm saline and the skin incision was closed with a 4-0 Monocryl subcuticular suture. Sterile dressing was applied. The patient was taken to the recovery room in satisfactory condition. I attest to the content of the Intraoperative Record and any orders documented therein. Any exception s are noted below.
[2018-11-05] MEDS: KETOROLAC 30 MG/ML VIAL IV PRN (13:03)
[2018-11-05] MEDS: SIMETHICONE 80 MG CHEW PO SCH ×3 (13:04→21:00)
[2018-11-05] MEDS: OXYTOCIN 20 UNITS in LACTATED RINGER'S 1,000 ML IV SCH (18:30)
[2018-11-05] MEDS: SENNA 8.6 MG TAB PO SCH (21:00)
[2018-11-06] MEDS: KETOROLAC 30 MG/ML VIAL IV PRN (01:32)
[2018-11-06] MEDS ORDERED: DiphenhydrAMINE HCL 50 MG/ML VIAL IV PRN (01:57)
[2018-11-06] MEDS ORDERED: ONDANSETRON INJ 2 MG/ML 2 ML VIAL IV PRN (01:57)
[2018-11-06] MEDS ORDERED: KETOROLAC 30 MG/ML VIAL IV PRN (01:57)
[2018-11-06] MEDS ORDERED: DC INTRASPINAL MORPHINE SCH (01:57)
[2018-11-06] MEDS: OXYTOCIN 20 UNITS in LACTATED RINGER'S 1,000 ML IV SCH (02:37)
[2018-11-06 06:32] LABS: Basophils # (auto) 0.01 K/uL (0-0.2); Basophils % (auto) 0.1 %; Eosinophils # (auto) 0.04 K/uL (0-0.5); Eosinophils % (auto) 0.4 %; Hematocrit (blood only) 30.3 % (37-47); Hemoglobin 10.4 g/dL (12.0-16.0); Immature Granulocytes # (auto) 0.02 K/uL (0.00-0.02); Immature Granulocytes % (auto) 0.2 %; Lymphocytes # (auto) 1.59 K/uL (1.2-3.4); Lymphocytes % (auto) 17.7 %; Mean Corpuscular Hemoglobin 31.4 pg (25-34); Mean Corpuscular Hgb Conc 34.3 g/dL (32-36); Mean Corpuscular Volume 91.5 fL (80-100); Mean Platelet Volume 10.7 fL (7.4-10.4); Monocytes # (auto) 0.75 K/uL (0.11-0.59); Monocytes % (auto) 8.4 %; Neutrophils # (auto) 6.55 K/uL (1.4-6.5); Neutrophils % (auto) 73.2 %; Platelet Count 141 K/uL (130-400); RDW Coefficient of Variation 13.3 % (11.5-14.5); RDW Standard Deviation 44.3 fL (36.4-46.3); Red Blood Count 3.31 M/uL (4.2-5.4); White Blood Count 8.96 K/uL (4.8-10.8)
--- NOTE | 2018-11-06 07:01 | Obstetrical Progress Note ---
Date of Service <Reinaldo Linda MD - Last Filed: 11/06/18 07:01> November 06, 2018 Assessment & Plan <Reinaldo Linda MD - Last Filed: 11/06/18 07:01> (1) delivery delivered: 11/05 POD#1 -Feels well today, voiding well, ambulating well -pain well controlled -advance diet as tolerated -After discharge will have 6 week follow-up (2) : Subjective <Reinaldo Linda MD - Last Filed: 11/06/18 07:01> Ms Sanchez is a 33y/o female ; POD #1 following delivery at 39+ weeks; doing well this morning; some continued abdominal cramping/pain; voiding well; passing gas but no bowel movements at this point; tolerated liquids overnight; and able to ambulate some Physical Exam <Reinaldo Linda MD - Last Filed: 11/06/18 07:01> General: alert; oriented; no acute distress Cardiac: RRR; no m/g/r Respiratory: CTAB a/p; no wheezes/rales/rhonchi; no increased work of breathing; symmetrical chest rise; no respiratory distress Abdomen: soft; NT/ND; bowel sounds positive; incision clean, non-tender, no bleeding Uterus: uterine fundus firm; palpable 2cm below umbilicus Lower extrem: no lower extremity edema or swelling; no deep calf pain; Yomaira's sign negative b/l Results & Data <Reinaldo Linda MD - Last Filed: 11/06/18 07:01> Vital Signs (Past 12 Hours) Vital Signs Temp Pulse Resp BP Pulse Ox 11/06/18 04:25 36.7 C 65 18 96/60 L 11/06/18 01:05 16 98 11/06/18 00:00 36.7 C 71 16 119/79 98 11/05/18 23:15 18 100 11/05/18 22:30 16 99 11/05/18 21:25 18 98 11/05/18 20:30 36.9 C 60 20 113/71 99 11/05/18 19:21 18 100 Laboratory Results 11/06/18 11/05/18 11/05/18 Range/Units 06:12 08:04 08:04 WBC 8.96 (4.8-10.8) K/uL RBC 3.31 L (4.2-5.4) M/uL Hgb 10.4 L (12.0-16.0) g/dL Hct 30.3 L (37-47) % MCV 91.5 (80-100) fL MCH 31.4 (25-34) pg MCHC 34.3 (32-36) g/dL RDW Std Deviation 44.3 (36.4-46.3) fL RDW Coeff of Supriya 13.3 (11.5-14.5) % Plt Count 141 (130-400) K/uL MPV 10.7 H (7.4-10.4) fL Immature Gran % (Auto) 0.2 % Neut % (Auto) 73.2 % Lymph % (Auto) 17.7 % Nance % (Auto) 8.4 % Eos % (Auto) 0.4 % Baso % (Auto) 0.1 % Immature Gran # (Auto) 0.02 (0.00-0.02) K/uL Neut # (Auto) 6.55 H (1.4-6.5) K/uL Lymph # (Auto) 1.59 (1.2-3.4) K/uL Nance # (Auto) 0.75 H (0.11-0.59) K/uL Eos # (Auto) 0.04 (0-0.5) K/uL Baso # (Auto) 0.01 (0-0.2) K/uL Cord ABG pH 7.27 (7.1-7.38) Cord ABG pCO2 54 (39.1-73.5) mmHg Cord ABG pO2 23.0 (4.1-31.7) % Cord ABG HCO3 25 (19.7-28.5) mmol/L Cord ABG Base Excess -3.0 (-9-1.8) mEq/L Cord ABG O2 Sat < 60.0 (<60) % Cord VBG pH 7.35 (7.20-7.44) Cord VBG pCO2 45 (30.4-57.2) mmHg Cord VBG pO2 30 (14.1-43.3) mmHg Cord VBG HCO3 24 (18.4-26.8) mmol/L Cord VBG Base Excess -1.9 (-7.7-1.9) mEq/L Cord VBG O2 Sat 63.0 (<68) % Barometric Pressure 737.9 737.9 mm/Hg Blood Gas Comments A INFANT A Blood Type Antibody Screen 11/05/18 Range/Units 06:06 WBC (4.8-10.8) K/uL RBC (4.2-5.4) M/uL Hgb (12.0-16.0) g/dL Hct (37-47) % MCV (80-100) fL MCH (25-34) pg MCHC (32-36) g/dL RDW Std Deviation (36.4-46.3) fL RDW Coeff of Supriya (11.5-14.5) % Plt Count (130-400) K/uL MPV (7.4-10.4) fL Immature Gran % (Auto) % Neut % (Auto) % Lymph % (Auto) % Nance % (Auto) % Eos % (Auto) % Baso % (Auto) % Immature Gran # (Auto) (0.00-0.02) K/uL Neut # (Auto) (1.4-6.5) K/uL Lymph # (Auto) (1.2-3.4) K/uL Nance # (Auto) (0.11-0.59) K/uL Eos # (Auto) (0-0.5) K/uL Baso # (Auto) (0-0.2) K/uL Cord ABG pH (7.1-7.38) Cord ABG pCO2 (39.1-73.5) mmHg Cord ABG pO2 (4.1-31.7) % Cord ABG HCO3 (19.7-28.5) mmol/L Cord ABG Base Excess (-9-1.8) mEq/L Cord ABG O2 Sat (<60) % Cord VBG pH (7.20-7.44) Cord VBG pCO2 (30.4-57.2) mmHg Cord VBG pO2 (14.1-43.3) mmHg Cord VBG HCO3 (18.4-26.8) mmol/L Cord VBG Base Excess (-7.7-1.9) mEq/L Cord VBG O2 Sat (<68) % Barometric Pressure mm/Hg Blood Gas Comments Blood Type O Positive Antibody Screen NEGATIVE Medications Administered Current Inpatient Medications Benzocaine (Dermoplast Pain Relieving [place]) 1 appln EXT UD PRN PRN Reason: use on skin as needed Stop: 12/05/18 10:46 Bisacodyl (Dulcolax) 10 mg AR PRN PRN PRN Reason: Constipation Stop: 12/07/18 08:32 Cocaine HCl (Supercream 0.870%) 1 gm EXT UD PRN PRN Reason: hemmorrhoidal inflammation Stop: 11/19/18 10:46 Diphenhydramine HCl (Benadryl) 25 mg IV QID PRN PRN Reason: Itching Stop: 12/06/18 01:56 Diphenhydramine HCl (Benadryl Capsule) 25 mg PO QID PRN PRN Reason: Itching Stop: 12/06/18 01:56 Ferrous Sulfate (Feosol) 325 mg PO DAILY@08 [facility] Stop: 12/06/18 07:59 Hydrocortisone (Anusol Hc) 25 mg [place] BID PRN PRN Reason: Hemorrhoids Stop: 12/05/18 10:46 Promethazine HCl 12.5 mg/ (Sodium Chloride) 50.5 mls @ 202 mls/hr IV Q6H PRN PRN Reason: Nausea And Vomiting Stop: 12/05/18 08:55 Oxytocin 20 units/ Lactated (Ringer's) 1,002 mls @ 125 mls/hr IV .Q8H1M [facility] Stop: 12/05/18 09:59 Last Infusion: 11/05/18 18:40 Dose: Infused Documented by: Lactated Ringer's (Lr) 1,000 mls @ 125 mls/hr IV .Q8H [facility] Stop: 12/05/18 10:46 Ibuprofen (Motrin) 600 mg PO Q4H PRN PRN Reason: Pain Stop: 12/06/18 01:56 Ketorolac Tromethamine (Toradol) 30 mg IV Q6H PRN PRN Reason: Pain Stop: 11/11/18 01:56 Magnesium Hydroxide (Milk Of Magnesia) 30 ml PO HS [facility] Stop: 12/06/18 20:59 Miscellaneous Information (Dc Intraspinal Morphine) 1 ea N/A TODAY@0157 [facility] Stop: 12/06/18 01:56 Last Admin: 11/06/18 01:57 Dose: 1 ea Documented by: Ondansetron HCl (Zofran) 4 mg IV Q4H PRN PRN Reason: Nausea And Vomiting Stop: 12/06/18 01:56 Oxycodone/Acetaminophen (Percocet 5mg/325mg) 1 - 2 tab PO Q4H PRN PRN Reason: Pain Stop: 11/20/18 01:56 Prenat Multivit/[place]/Iron/Folic Ac ( Vitamin) 1 tab PO DAILY@08 [facility] Stop: 12/06/18 07:59 Sennosides (Senokot) 17.2 mg PO HS [facility] Stop: 12/06/18 20:59 Last Admin: 11/05/18 21:00 Dose: 17.2 mg Documented by: Simethicone (Mylicon) 80 mg PO DAILY@08,13,17,21 [facility] Stop: 12/05/18 12:59 Last Admin: 11/05/18 21:00 Dose: 80 mg Documented by: <Clarizta Hunt MD, FACOG - Last Filed: 11/06/18 07:43> Co-Signing Physician Notes Resident Physician Supervision Note: I was present with Dr. Linda during the history and exam. I discussed the case with the resident and agree with the findings and plan as documented in the note. Any exceptions or clarifications are listed here: doing well. hgb noted. adv diet, ambulate, po pain meds. incision c/d/i. routine care. Documented By: Claritza Hunt MD, FACOG Resident Activity Tracking <Reinaldo Linda MD - Last Filed: 11/06/18 07:01> Resident Involvement: Resident Care Provided Care Provided: OB Delivery
[2018-11-06] MEDS: PRENATAL VITAMIN 1 TAB PO SCH (08:40)
[2018-11-06] MEDS: FERROUS SULFATE 325 MG TAB PO SCH (08:40)
[2018-11-06] MEDS: SIMETHICONE 80 MG CHEW PO SCH ×4 (08:40→19:49)
[2018-11-06] MEDS: IBUPROFEN 600 MG TAB PO PRN ×3 (08:40→22:11)
[2018-11-06] MEDS: OXYCODONE/ACETAMINOPHEN 5mg/325mg TAB PO PRN ×3 (09:23→22:10)
[2018-11-06] MEDS ORDERED: MAGNESIUM HYDROXIDE SUSP 30 ML UDC PO SCH (21:00)
[2018-11-06] MEDS: SENNA 8.6 MG TAB PO SCH (22:11)
[2018-11-07] MEDS: IBUPROFEN 600 MG TAB PO PRN ×4 (05:18→22:21)
[2018-11-07] MEDS: OXYCODONE/ACETAMINOPHEN 5mg/325mg TAB PO PRN ×4 (05:18→22:21)
--- NOTE | 2018-11-07 06:17 | Obstetrical Progress Note ---
Date of Service <Reinaldo Linda MD - Last Filed: 11/07/18 07:07> November 07, 2018 Assessment & Plan <Reinaldo Linda MD - Last Filed: 11/07/18 07:07> (1) delivery delivered: 11/05 POD#2 -Feels well today, voiding well, ambulating well -pain well controlled -After discharge will have 6 week follow-up (2) : Subjective <Reinaldo Linda MD - Last Filed: 11/07/18 07:07> Ms Sanchez is a 33 y/o female ; POD #2 following delivery at 39+ weeks; doing well this morning; mild abdominal cramping/pain; voiding well, passing gas but no bowel movements at this point; tolerating meals overnight; and able to ambulate some; intermittent spotting from incision site but not through a pad Physical Exam <Reinaldo Linda MD - Last Filed: 11/07/18 07:07> General: alert; oriented; no acute distress Cardiac: RRR; no m/g/r Respiratory: CTAB a/p; no wheezes/rales/rhonchi; no increased work of breathing; symmetrical chest rise; no respiratory distress Abdomen: soft; NT/ND; bowel sounds positive Uterus: uterine fundus firm; palpable 1cm below umbilicus Lower extrem: no lower extremity edema or swelling; no deep calf pain; Yomaira's sign negative b/l Results & Data <Reinaldo Linda MD - Last Filed: 11/07/18 07:07> Vital Signs (Past 12 Hours) Vital Signs Temp Pulse Resp BP Pulse Ox 11/07/18 00:00 36.9 C 60 20 105/64 98 11/06/18 19:45 37 C 70 20 113/68 100 Laboratory Results 11/07/18 Range/Units 06:39 Hgb 9.8 L (12.0-16.0) g/dL Hct 28.7 L (37-47) % Medications Administered Current Inpatient Medications Benzocaine (Dermoplast Pain Relieving [place]) 1 appln EXT UD PRN PRN Reason: use on skin as needed Stop: 12/05/18 10:46 Bisacodyl (Dulcolax) 10 mg [place] PRN PRN PRN Reason: Constipation Stop: 12/07/18 08:32 Cocaine HCl (Supercream 0.870%) 1 gm EXT UD PRN PRN Reason: hemmorrhoidal inflammation Stop: 11/19/18 10:46 Diphenhydramine HCl (Benadryl) 25 mg IV QID PRN PRN Reason: Itching Stop: 12/06/18 01:56 Diphenhydramine HCl (Benadryl Capsule) 25 mg PO QID PRN PRN Reason: Itching Stop: 12/06/18 01:56 Ferrous Sulfate (Feosol) 325 mg PO DAILY@08 [facility] Stop: 12/06/18 07:59 Last Admin: 11/06/18 08:40 Dose: 325 mg Documented by: Hydrocortisone (Anusol Hc) 25 mg [place] BID PRN PRN Reason: Hemorrhoids Stop: 12/05/18 10:46 Promethazine HCl 12.5 mg/ (Sodium Chloride) 50.5 mls @ 202 mls/hr IV Q6H PRN PRN Reason: Nausea And Vomiting Stop: 12/05/18 08:55 Oxytocin 20 units/ Lactated (Ringer's) 1,002 mls @ 125 mls/hr IV .Q8H1M [facility] Stop: 12/05/18 09:59 Last Infusion: 11/05/18 18:40 Dose: Infused Documented by: Lactated Ringer's (Lr) 1,000 mls @ 125 mls/hr IV .Q8H [facility] Stop: 12/05/18 10:46 Ibuprofen (Motrin) 600 mg PO Q4H PRN PRN Reason: Pain Stop: 12/06/18 01:56 Last Admin: 11/07/18 05:18 Dose: 600 mg Documented by: Ketorolac Tromethamine (Toradol) 30 mg IV Q6H PRN PRN Reason: Pain Stop: 11/11/18 01:56 Magnesium Hydroxide (Milk Of Magnesia) 30 ml PO HS [facility] Stop: 12/06/18 20:59 Miscellaneous Information (Dc Intraspinal Morphine) 1 ea N/A TODAY@0157 [facility] Stop: 12/06/18 01:56 Last Admin: 11/06/18 01:57 Dose: 1 ea Documented by: Ondansetron HCl (Zofran) 4 mg IV Q4H PRN PRN Reason: Nausea And Vomiting Stop: 12/06/18 01:56 Oxycodone/Acetaminophen (Percocet 5mg/325mg) 1 - 2 tab PO Q4H PRN PRN Reason: Pain Stop: 11/20/18 01:56 Last Admin: 11/07/18 05:18 Dose: 1 tab Documented by: Felisa Multivit/Importer Or Exporter/Iron/Folic Ac ( Vitamin) 1 tab PO DAILY@08 [facility] Stop: 12/06/18 07:59 Last Admin: 11/06/18 08:40 Dose: 1 tab Documented by: Sennosides (Senokot) 17.2 mg PO HS [facility] Stop: 12/06/18 20:59 Last Admin: 11/06/18 22:11 Dose: 17.2 mg Documented by: Simethicone (Mylicon) 80 mg PO DAILY@08,13,17,21 [facility] Stop: 12/05/18 12:59 Last Admin: 11/06/18 19:49 Dose: 80 mg Documented by: <Sari Ho MD, FACOG - Last Filed: 11/07/18 07:34> Co-Signing Physician Notes Resident Physician Supervision Note: I interviewed and examined the patient. Discussed with Dr. Linda and agree with findings and plan as documented in the note. Any exceptions or clarifications are listed here: [None] Documented By: Sari Ho MD, FACOG Resident Activity Tracking <Reinaldo Linda MD - Last Filed: 11/07/18 07:07> Resident Involvement: Resident Care Provided Care Provided: OB Delivery
[2018-11-07 07:00] LABS: Hematocrit (blood only) 28.7 % (37-47); Hemoglobin 9.8 g/dL (12.0-16.0)
[2018-11-07] MEDS ORDERED: BISACODYL 10 MG SUPP PR PRN (08:33)
[2018-11-07] MEDS: PRENATAL VITAMIN 1 TAB PO SCH (08:49)
[2018-11-07] MEDS: SIMETHICONE 80 MG CHEW PO SCH ×4 (08:49→20:11)
[2018-11-07] MEDS: FERROUS SULFATE 325 MG TAB PO SCH (08:49)
[2018-11-07] MEDS: SENNA 8.6 MG TAB PO SCH (20:12)
--- NOTE | 2018-11-08 06:18 | Obstetrical Progress Note ---
Date of Service <Reinaldo Linda MD - Last Filed: 11/08/18 06:56> November 08, 2018 Assessment & Plan <Reinaldo Linda MD - Last Filed: 11/08/18 06:56> (1) delivery delivered: 11/05 POD#3 -Feels well today, voiding well, ambulating well -pain well controlled -After discharge will have 6 week follow-up (2) : Subjective <Reinaldo Linda MD - Last Filed: 11/08/18 06:56> Ms Sanchez is a 33 y/o female ; POD #3 following delivery at 39+ weeks; doing well this morning; mild abdominal cramping/pain; voiding well, passing gas but no bowel movements at this point; tolerating meals overnight; and able to ambulate some; intermittent spotting from incision site but not through a pad Physical Exam <Reinaldo Linda MD - Last Filed: 11/08/18 06:56> General: alert; oriented; no acute distress Cardiac: RRR; no m/g/r Respiratory: CTAB a/p; no wheezes/rales/rhonchi; no increased work of breathing; symmetrical chest rise; no respiratory distress Abdomen: soft; NT/ND; bowel sounds positive Uterus: uterine fundus firm; palpable 3cm below umbilicus, LCT incision clean without erythema, warmth, or tenderness Lower extrem: no lower extremity edema or swelling; no deep calf pain; Yomaira's sign negative b/l Results & Data <Reinaldo Linda MD - Last Filed: 11/08/18 06:56> Vital Signs (Past 12 Hours) Vital Signs Temp Pulse Resp BP Pulse Ox 11/08/18 00:15 36.8 C 67 20 111/69 98 Medications Administered Current Inpatient Medications Benzocaine (Dermoplast Pain Relieving [place]) 1 appln EXT UD PRN PRN Reason: use on skin as needed Stop: 12/05/18 10:46 Bisacodyl (Dulcolax) 10 mg [place] PRN PRN PRN Reason: Constipation Stop: 12/07/18 08:32 Cocaine HCl (Supercream 0.870%) 1 gm EXT UD PRN PRN Reason: hemmorrhoidal inflammation Stop: 11/19/18 10:46 Diphenhydramine HCl (Benadryl) 25 mg IV QID PRN PRN Reason: Itching Stop: 12/06/18 01:56 Diphenhydramine HCl (Benadryl Capsule) 25 mg PO QID PRN PRN Reason: Itching Stop: 12/06/18 01:56 Ferrous Sulfate (Feosol) 325 mg PO DAILY@08 [facility] Stop: 12/06/18 07:59 Last Admin: 11/07/18 08:49 Dose: 325 mg Documented by: Hydrocortisone (Anusol Hc) 25 mg [place] BID PRN PRN Reason: Hemorrhoids Stop: 12/05/18 10:46 Promethazine HCl 12.5 mg/ (Sodium Chloride) 50.5 mls @ 202 mls/hr IV Q6H PRN PRN Reason: Nausea And Vomiting Stop: 12/05/18 08:55 Oxytocin 20 units/ Lactated (Ringer's) 1,002 mls @ 125 mls/hr IV .Q8H1M [facility] Stop: 12/05/18 09:59 Last Infusion: 11/05/18 18:40 Dose: Infused Documented by: Lactated Ringer's (Lr) 1,000 mls @ 125 mls/hr IV .Q8H [facility] Stop: 12/05/18 10:46 Ibuprofen (Motrin) 600 mg PO Q4H PRN PRN Reason: Pain Stop: 12/06/18 01:56 Last Admin: 11/07/18 22:21 Dose: 600 mg Documented by: Ketorolac Tromethamine (Toradol) 30 mg IV Q6H PRN PRN Reason: Pain Stop: 11/11/18 01:56 Magnesium Hydroxide (Milk Of Magnesia) 30 ml PO HS [facility] Stop: 12/06/18 20:59 Last Admin: 11/07/18 20:12 Dose: 30 ml Documented by: Miscellaneous Information (Dc Intraspinal Morphine) 1 ea N/A TODAY@0157 [facility] Stop: 12/06/18 01:56 Last Admin: 11/06/18 01:57 Dose: 1 ea Documented by: Ondansetron HCl (Zofran) 4 mg IV Q4H PRN PRN Reason: Nausea And Vomiting Stop: 12/06/18 01:56 Oxycodone/Acetaminophen (Percocet 5mg/325mg) 1 - 2 tab PO Q4H PRN PRN Reason: Pain Stop: 11/20/18 01:56 Last Admin: 11/07/18 22:21 Dose: 1 tab Documented by: Prenat Multivit/[place]/Iron/Folic Ac ( Vitamin) 1 tab PO DAILY@08 [facility] Stop: 12/06/18 07:59 Last Admin: 11/07/18 08:49 Dose: 1 tab Documented by: Sennosides (Senokot) 17.2 mg PO HS [facility] Stop: 12/06/18 20:59 Last Admin: 11/07/18 20:12 Dose: 17.2 mg Documented by: Simethicone (Mylicon) 80 mg PO DAILY@08,13,17,21 [facility] Stop: 12/05/18 12:59 Last Admin: 11/07/18 20:11 Dose: 80 mg Documented by: <Sterling Dobbs Jr, MD, FACOG - Last Filed: 11/08/18 07:37> Co-Signing Physician Notes Resident Physician Supervision Note: I was present with Dr. Linda during the history and exam. I discussed the case with the resident and agree with the findings and plan as documented in the note. Any exceptions or clarifications are listed here: D/C instructons reviewed Documented By: Sterling Dobbs Jr, MD, FACOG Resident Activity Tracking <Reinaldo Linda MD - Last Filed: 11/08/18 06:56> Resident Involvement: Resident Care Provided Care Provided: OB Delivery
[2018-11-08] MEDS: OXYCODONE/ACETAMINOPHEN 5mg/325mg TAB PO PRN ×2 (06:33→12:44)
[2018-11-08] MEDS: IBUPROFEN 600 MG TAB PO PRN ×2 (06:34→12:44)
[2018-11-08] MEDS: FERROUS SULFATE 325 MG TAB PO SCH (08:22)
[2018-11-08] MEDS: PRENATAL VITAMIN 1 TAB PO SCH (08:22)
[2018-11-08] MEDS: SIMETHICONE 80 MG CHEW PO SCH ×2 (08:22→13:30)
[2018-11-08 08:27] VITALS: TEMP 98.6; O2SAT 100
--- NOTE | 2018-11-08 12:03 | Obstetrical Progress Note ---
Date of Service November 08, 2018 Subjective Called to room to eval rash on abdomen - red, raised, patchy. Some small areas on her back too. No difficulty breathing or chest tightness. Feels like this has improved a bit since yesterday. Will give PO benadryl. Results & Data Vital Signs (Past 12 Hours) Vital Signs Temp Pulse Resp BP Pulse Ox 11/08/18 08:00 37 C 64 18 109/73 100 11/08/18 00:15 36.8 C 67 20 111/69 98 PG Care Time/CCT Total # of Minutes Spent Total Time Spent with Patient: Total time spent is greater than 50% in coordination of care (as documented) at patient's floor/unit and/or counseling patient:
[2018-11-08 17:16] VITALS: BP 125/68; PULSE 55
--- NOTE | 2018-11-09 09:56 | Discharge Summary ---
Date of Service November 09, 2018 Admission HPI Per Admitting Provider The patient is a 33-year-old 2, para 1 with an EDC of 09 November who was admitted at 39+ weeks gestational age for elective repeat section. The patient had been counseled on the risks and benefits of an attempted vaginal after versus a repeat section and has opted for repeat section. The patient's first delivery was a section at term for bleeding. Postoperatively, the patient had bleeding requiring a Bakri balloon as well as transfusion. This has been unremarkable. Laboratory values for the show a blood type of O positive, antibody negative, rubella immune, hepatitis B negative. The patient declined all genetic screening. She had normal 1-hour Glucola x2. She had GBS bacteria during the . Admission Exam (Per Admitting) Constitutional ADMISSION PHYSICAL EXAMINATION: GENERAL: Shows a gravid female in no acute distress. VITAL SIGNS: Blood pressure 110/80 and a weight of 148 pounds. HEENT EXAMINATION: Unremarkable. NECK: Supple. LUNGS: Clear. HEART: With a regular rhythm and rate. ABDOMEN: Gravid, vertex, positive heart tones, estimated weight of 7-1/2 pounds. PELVIC: Deferred. EXTREMITIES: Shows no deep calf tenderness. NEUROLOGIC: Grossly intact. Discharge Data Consultations 11/05/18 05:43 Consult Anesthesiology Stat Procedures Performed Operation Date: 11/05/18 07:30 Actual Procedures p Section in LD; LIVE FEMALE AT 0804(Bilateral) - Sterling Dobbs Jr, MD, [facility] Course (1) History of delivery, antepartum: On the day of admission the patient was taken to the operating room where she underwent a repeat low transverse section. Postoperatively the patient did well Neville catheter was removed on the 1st postoperative day. By the 3rd postoperative day she was ambulating without difficulty and tolerating a regular diet. Patient was discharged home with routine discharge instructions and prescriptions for the medications as listed as and chart. She will follow up for postoperative check but is always she was instructed to call any questions problems or difficulties.
== END 2018-11-08 16:45 | disposition home or self-care (01) | DRG 788 ==
LOC: 4S1 05:35 → EDSTATUS 07:30 → 4S2 12:41